=== PATIENT | male | born 1995 | race American Indian/Alaskan Native ===

== ENCOUNTER 2018-10-12 18:50 | Emergency (ER) | payer MEDICAID, OTHER ==
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
[2018-10-12] MEDS ORDERED: IBUPROFEN PO ONE (22:47)
[2018-10-12] MEDS ORDERED: ULTRAM PO ONE (22:47)
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
[2018-10-13 06:13] VITALS: BP 114/68
== END 2018-10-13 | disposition home or self-care (01) ==
LOC: ED 18:50
DX: S46.911A Strain of unspecified muscle, fascia and tendon at shoulder and upper arm level, right arm, initial encounter (principal); S39.012A Strain of muscle, fascia and tendon of lower back, initial encounter; V49.49XA Driver injured in collision with other motor vehicles in traffic accident, initial encounter; Y93.89 Activity, other specified; Y92.488 Other paved roadways as the place of occurrence of the external cause; Y99.8 Other external cause status
CPT/HCPCS: 72100; 99283